=== PATIENT | male | born 1990 | race Caucasian/White ===

== ENCOUNTER 2020-01-19 07:33 | Day surgery (SDC) | payer OTHER ==
[2020-01-19 08:11] VITALS: TEMP 98.5
[2020-01-19 08:27] VITALS: BMI 19.6
[2020-01-19] MEDS ORDERED: SUCCINYLCHOLINE CHLORIDE 200 MG/10 ML SYRINGE ONE (09:09)
[2020-01-19] MEDS ORDERED: KETAMINE HCL 500 MG/10 ML VIAL ONE ×2 (09:09→09:37)
--- NOTE | 2020-01-19 09:13 | HP ---
CHIEF COMPLAINT: MDD, Bipolar disorder PCP: [facility] in [place], [place] [phone] Primary Psychiatrist: Dr. Teague [phone] HCP: Parents (Beto Sagastume [phone], Grace Sagastume [phone]) HISTORY OF PRESENT ILLNESS: 29 year old M with bipolar depression since 2013 initially treated with zyprexa and depakote with minimal effect, therefore he was transitioned to ECT therapy with good results after 12 treatments. In September 2018, pt had a breakthrough episode and was started on Zyprexa, lithium and depakote which was not effective and once again he was treated with ECT x 7 sessions (W/ Dr Lucius Dupont [phone]). Recent Events: In December 2019, pt had a manic episode which was managed with resperidol, now switched to Mayflower, klonopin and Zyprexa. His symptoms persist, therefore, pt opts to undergo ECT. COVID IgG positive 12/27/19 (never had acute infection) PAST MEDICAL HISTORY: Bipolar depression PAST SURGICAL HISTORY: none Social History: with 4 children Currently lives with parents unemployed Exercise: minimal Smoking:denies Alcohol:denies Drugs: denies FMHX Mother alive (66) pre-DM FAther alive (68) pre-DM, h/o lymphoma 5 brother alive and well 2 sisters alive and well Allergies: No Known Drug Allergies Allergy (Verified 01/19/20 07:43) HOME MEDICATIONS: Home Medications Medication Instructions Recorded Clonazepam [Klonopin] 1 mg PO ASDIR PRN 01/18/20 Mayflower Carbonate [Eskalith -] 900 mg PO DAILY 01/18/20 Mayflower Carbonate [Lithobid] 300 mg PO HS 01/18/20 Olanzapine [Zyprexa] 20 mg PO DAILY 01/18/20 Olanzapine [Zyprexa] 40 mg PO HS 01/18/20 Diagnostics: EKG 01/17/2020 (my read) ST 101bpm RAEANN 124ms, QRS 72ms, QT/QTc 320/414ms, ?LAE, LVH LABS: 01/17/2020 WBC 12.6 (H) H/H 14.0/41.8 MCV 89 Labs from psychiatrist on 12/27/19 Glucose 151 (H) WBC 11.8 (H) neutrophils 82.0 D-dimer 1.64 LDH 360 (H) TSH 0.69 T4 toal 8.17 T3 total 95.7 Mayflower level 1.5 (H) REVIEW OF SYSTEMS CONSTITUTIONAL: Absent: fever, chills, diaphoresis, generalized weakness, malaise, loss of appetite, weight change HEENT: Absent: rhinorrhea, nasal congestion, throat pain, throat swelling, difficulty swallowing, mouth swelling, ear pain, eye pain, visual changes CARDIOVASCULAR: Absent: chest pain, syncope, palpitations, irregular heart rate, lightheadedness, peripheral edema RESPIRATORY: Absent: cough, shortness of breath, dyspnea with exertion, orthopnea, wheezing, stridor, hemoptysis GASTROINTESTINAL: Absent: abdominal pain, abdominal distension, nausea, vomiting, diarrhea, constipation, melena, hematochezia GENITOURINARY: Absent: dysuria, frequency, urgency, hesitancy, hematuria, flank pain, genital pain MUSCULOSKELETAL: Absent: myalgia, arthralgia, joint swelling, back pain, neck pain SKIN: Absent: rash, itching, pallor HEMATOLOGIC/IMMUNOLOGIC: Absent: easy bleeding, easy bruising, lymphadenopathy, frequent infections ENDOCRINE: Absent: unexplained weight gain, unexplained weight loss, heat intolerance, cold intolerance NEUROLOGIC: Absent: headache, focal weakness or paresthesias, dizziness, unsteady gait, seizure, mental status changes, bladder or bowel incontinence PHYSICAL EXAMINATION Vital Signs - 24 hr 01/19/20 08:04 Temperature 98.5 F Pulse Rate 100 H Respiratory 18 Rate Blood Pressure 130/79 O2 Sat by Pulse 96 Oximetry (%) GENERAL: Awake, alert, and fully oriented, in no acute distress. HEAD: Normal with no signs of trauma. EYES: Pupils equal, round and reactive to light, sclera anicteric, conjunctiva clear. LUNGS: Breath sounds equal, clear to auscultation bilaterally. No wheezes, and no crackles. No accessory muscle use. HEART: Rapid rate and rhythm, normal S1 and S2 ABDOMEN: Soft, nontender, not distended SKIN:hyperpigmentation to mid/upper back, no wounds/lacerations, dry MUSCULOSKELETAL: Normal range of motion at all joints. No bony deformities or tenderness. No CVA tenderness. UPPER EXTREMITIES: 2+ pulses, warm, well-perfused. No cyanosis. No clubbing. No peripheral edema. LOWER EXTREMITIES: 2+ pulses, warm, well-perfused. No calf tenderness. No peripheral edema. NEUROLOGICAL: normal gait, slow pressured speech. ASSESSMENT/PLAN: 29 year old M with bipolar depression since 2013 minimally responsive to oral meds, with prior ECT success now presents for reinitiation of ECT after exacerbation of bipolar disorder in Dec 2019. Cardiac --no cardiac history --baseline HR elevated and EKG with possible LAE,LVH would recommend a routine Echocardiogram prior to next session --Revised Cardiac Risk Index for Pre-Operative Risk: 0 points, 0.4% risk of major cardiac event Pulmonary --no pulmonary history Neurological --no neurological or neurosurgical history; no history of trauma Anesthesia --no reported problems with anesthesia ECT is a low risk procedure. The relative benefits of the planned procedure outweigh the relative risks for this patient at this time. Plan of care reviewed with mother and father (Grace and Beto Sagastume). Problem List - Problem (1) Bipolar disorder with depression Code(s): F31.9 - BIPOLAR DISORDER, UNSPECIFIED Visit type - Emergency Visit Emergency Visit: No - New Patient This patient is new to me today: Yes Date on this admission: 01/19/20 - Critical Care Critical Care patient: No
[2020-01-19] MEDS ORDERED: METOPROLOL TARTRATE 5 MG/5 ML VIAL ONE (09:20)
[2020-01-19] MEDS ORDERED: MIDAZOLAM HCL 2 MG/2 ML SINGLE DOSE VIAL ONE (09:28)
[2020-01-19] MEDS ORDERED: ONDANSETRON 4 MG/2 ML VIAL ONE (09:38)
[2020-01-19] MEDS ORDERED: PROPOFOL 20 ML ONE ×2 (09:38→09:39)
[2020-01-19] MEDS ORDERED: KETOROLAC TROMETHAMINE 30 MG/1 ML VIAL ONE (09:38)
[2020-01-19 10:35] VITALS: BP 121/71; PULSE 100
== END 2020-01-19 10:40 | disposition home or self-care (01) ==
LOC: FECT 07:33
PROVIDERS: ATTEND Psychiatry & Neurology Psychiatry
PROC: GZB4ZZZ Other Electroconvulsive Therapy (ICD-10-PCS; principal; 2020-01-19 10:30)
DX: F31.9 Bipolar disorder, unspecified (principal)
CPT/HCPCS: 90870; 94760

== ENCOUNTER 2020-01-22 07:05 | Day surgery (SDC) | payer OTHER ==
[2020-01-19 13:40] VITALS: BMI 19.6
[2020-01-22] MEDS ORDERED: KETAMINE HCL 500 MG/10 ML VIAL ONE (07:55)
[2020-01-22] MEDS ORDERED: MIDAZOLAM HCL 2 MG/2 ML SINGLE DOSE VIAL ONE (07:55)
[2020-01-22 09:30] VITALS: BP 121/86; PULSE 92; TEMP 98.4
== END 2020-01-22 09:20 | disposition home or self-care (01) ==
LOC: FECT 07:05
PROVIDERS: ATTEND Psychiatry & Neurology Psychiatry
PROC: GZB4ZZZ Other Electroconvulsive Therapy (ICD-10-PCS; principal; 2020-01-22 11:00)
DX: F31.60 Bipolar disorder, current episode mixed, unspecified (principal)
CPT/HCPCS: 90870; 94760; U0003

== ENCOUNTER 2020-01-25 08:14 | Day surgery (SDC) | payer OTHER ==
[2020-01-19 17:46] VITALS: BMI 19.6
[2020-01-25] MEDS ORDERED: KETAMINE HCL 500 MG/10 ML VIAL ONE (09:37)
[2020-01-25] MEDS ORDERED: MIDAZOLAM HCL 2 MG/2 ML SINGLE DOSE VIAL ONE (09:46)
[2020-01-25] MEDS ORDERED: PROPOFOL 20 ML ONE (09:46)
[2020-01-25 11:47] VITALS: BP 126/74; PULSE 84; TEMP 98
== END 2020-01-25 11:15 | disposition home or self-care (01) ==
LOC: FECT 08:14
PROVIDERS: ATTEND Psychiatry & Neurology Psychiatry
PROC: GZB4ZZZ Other Electroconvulsive Therapy (ICD-10-PCS; principal; 2020-01-25 10:00)
DX: F32.9 Major depressive disorder, single episode, unspecified (principal)
CPT/HCPCS: 90870; 94760

== ENCOUNTER 2020-01-26 06:16 | Day surgery (SDC) | payer OTHER ==
[2020-01-23 07:39] VITALS: BMI 19.6
--- OUTSIDE RECORDS SUMMARY | 2020-01-26 06:19 | XMS ---
:1990 Author Organization [facility] Support Name Relationship Address Phone UE Unavailable Unavailable Unavailable ROBBIE PALACIOS MOTHER [address] [facility] [place] [address] YULISA [place] [address] Re-disclosure Warning The records that you are [...] is protected by Article 27-F of the [facility] Public Health law. If you continue you may haveaccess to information: Regarding HIV / AIDS; Provided by facilities licensed or operated by the [facility] Office of Mental Health; or Provided by the [facility] Office for People With Developmental Disabilities. If such information is present, then the following [facility] mandated warning applies: This information has been [...] law may result in a fine or residential sentence or both. A general authorization for the release of medical or other information is NOT sufficient authorization for further disclosure. Insurance Providers Payer name Policy type Policy ID Covered Covered libertarian's Policy P albert / Coverage libertarian ID relationship to [employer] Inf ormation type alford HEALTH [id number] SP [id number] FIRST Results ID Date Data Source [id number] 01/22/2020 09:08:00 AM EDT [facility] Name Value Range Interpretation Description Data Sup porting Code Source(s) Document(s ) SARS [facility] coronavirus 2 RNA This lab was ordered by DESIREE MADRIGAL and reported by [facility]. ID Date Data Source [id number] 01/17/2020 02:30:00 PM EDT [facility] Name Value Range Interpretation Description Data Sup porting Code Source(s) Document(s ) SARS [facility] coronavirus 2 RNA This lab was ordered by DESIREE MADRIGAL and reported by [facility]. Procedure
[2020-01-26] MEDS ORDERED: KETAMINE HCL 500 MG/10 ML VIAL ONE (07:39)
[2020-01-26] MEDS ORDERED: LACTATED RINGERS SOLUTION 1,000 ML IV SCH (08:00)
[2020-01-26 08:57] VITALS: TEMP 98
[2020-01-26 08:58] VITALS: BP 122/76; PULSE 81
== END 2020-01-26 09:00 | disposition home or self-care (01) ==
LOC: FECT 06:16
PROVIDERS: ATTEND Psychiatry & Neurology Psychiatry
PROC: GZB4ZZZ Other Electroconvulsive Therapy (ICD-10-PCS; principal; 2020-01-26 07:00)
DX: F31.62 Bipolar disorder, current episode mixed, moderate (principal)
CPT/HCPCS: 90870; 94760; U0003

== ENCOUNTER 2020-02-01 07:29 | Day surgery (SDC) | payer OTHER ==
[2020-01-30 08:22] VITALS: BMI 26.6
--- OUTSIDE RECORDS SUMMARY | 2020-02-01 07:33 | XMS ---
:1990 Author Organization [facility] Support Name Relationship Address Phone UE, UNEMPLOYED Unavailable Unavailable Unavailable UE Unavailable Unavailable Unavailable ROBBIE PALACIOS MOTHER [address] [place] [address] [place] [address] Re-disclosure Warning The records that you are [...] is protected by Article 27-F of the [facility] Public Health law. If you continue you may haveaccess to information: Regarding HIV / AIDS; Provided by facilities licensed or operated by the [facility] Office of Mental Health; or Provided by the [facility] Office for People With Developmental Disabilities. If such information is present, then the following [facility] mandated warning applies: This information has [...] law may result in a fine or [facility] sentence or both. A general authorization for the release of medical or other information is NOT sufficient authorization for further disclosure. Insurance Providers Payer name Policy type Policy ID Covered Covered green party's Policy P albert / Coverage green party ID relationship to [employer] ormation type [employer] HEALTH [id number] SP [id number] FIRST Results ID Date Data Source [id number] 01/26/2020 07:42:00 AM EDT [facility] Name Value Range Interpretation Description Data Sup porting Code Source(s) Document(s ) SARS [facility] coronavirus 2 RNA This lab was ordered by [facility] and reported by [facility]. ID Date Data Source [id number] 01/22/2020 09:08:00 AM EDT [facility] Name Value Range Interpretation Description Data Sup porting Code Source(s) Document(s ) SARS [facility] coronavirus 2 RNA This lab was ordered by DESIREE MADRIGAL and reported by [facility]. ID Date Data Source [id number] 01/17/2020 02:30:00 PM EDT [facility] Name Value Range Interpretation Description Data Sup porting Code Source(s) Document(s ) SARS [facility] coronavirus 2 RNA This lab was ordered by DESIREE MADRIGAL and reported by [facility]. Procedure
[2020-02-01] MEDS ORDERED: PROPOFOL 20 ML ONE (08:57)
[2020-02-01] MEDS ORDERED: SUCCINYLCHOLINE CHLORIDE 200 MG/10 ML SYRINGE ONE (08:58)
[2020-02-01] MEDS ORDERED: KETAMINE HCL 500 MG/10 ML VIAL ONE (08:58)
[2020-02-01 10:05] VITALS: TEMP 97.7
[2020-02-01 10:26] VITALS: BP 108/62; PULSE 72
== END 2020-02-01 10:28 | disposition home or self-care (01) ==
LOC: FECT 07:29
PROVIDERS: ATTEND Psychiatry & Neurology Psychiatry
PROC: GZB4ZZZ Other Electroconvulsive Therapy (ICD-10-PCS; principal; 2020-02-01 09:30)
DX: F32.9 Major depressive disorder, single episode, unspecified (principal)
CPT/HCPCS: 90870; 94760

== ENCOUNTER 2020-02-02 06:33 | Day surgery (SDC) | payer OTHER ==
[2020-01-30 08:25] VITALS: BMI 26.6
--- OUTSIDE RECORDS SUMMARY | 2020-02-02 06:37 | XMS ---
:1990 Author Organization [facility] Support Name Relationship Address Phone UE, UNEMPLOYED Unavailable Unavailable Unavailable UE Unavailable Unavailable Unavailable ROBBIE PALACIOS MOTHER [address] [facility] [phone] [place] [phone] [place] [address] Re-disclosure Warning The records that you are [...] is protected by Article 27-F of the [facility] Public Health law. If you continue you may haveaccess to information: Regarding HIV / AIDS; Provided by facilities licensed or operated by the [facility] Office of Mental Health; or Provided by the [facility] Office for People With Developmental Disabilities. If such information is present, then the following [facility] mandated warning applies: This information has [...] law may result in a fine or half-way sentence or both. A general authorization for the release of medical or other information is NOT sufficient authorization for further disclosure. Insurance Providers Payer name Policy type Policy ID Covered Covered green party's Policy P albert / Coverage green party ID relationship to [employer] Inf ormation type al[employer] HEALTH [id number] SP [id number] FIRST Results ID Date Data Source [id number] 01/29/2020 10:30:00 AM EDT [facility] Name Value Range Interpretation Description Data Sup porting Code Source(s) Document(s ) SARS [facility] coronavirus 2 RNA This lab was ordered by DESIREE avila [facility] and reported by [facility]. ID Date Data Source [id number] 01/26/2020 07:42:00 AM EDT [facility] Name Value Range Interpretation Description Data Sup porting Code Source(s) Document(s ) SARS [facility] coronavirus 2 RNA This lab was ordered by [facility] and reported by [facility]. ID Date Data Source [id number] 01/22/2020 09:08:00 AM EDT [facility] Name Value Range Interpretation Description Data Sup porting Code Source(s) Document(s ) SARS [facility] coronavirus 2 RNA This lab was ordered by DESIREE avila [facility] and reported by [facility]. ID Date Data Source [id number] 01/17/2020 02:30:00 PM EDT [facility] Name Value Range Interpretation Description Data Sup porting Code Source(s) Document(s ) SARS [facility] coronavirus 2 RNA This lab was ordered by DESIREE avila [facility] and reported by [facility]. Procedure
[2020-02-02] MEDS ORDERED: PROMETHAZINE HCL 25 MG/1 ML VIAL IVPUSH PRN (06:53)
[2020-02-02] MEDS ORDERED: ACETAMINOPHEN 325 MG TABLET (FP) PO PRN (06:53)
[2020-02-02] MEDS ORDERED: LACTATED RINGERS SOLUTION 1,000 ML IV SCH (07:00)
[2020-02-02] MEDS ORDERED: KETAMINE HCL 500 MG/10 ML VIAL ONE (08:31)
[2020-02-02] MEDS ORDERED: PROPOFOL 20 ML ONE (08:38)
[2020-02-02] MEDS ORDERED: SUCCINYLCHOLINE CHLORIDE 200 MG/10 ML SYRINGE ONE (08:38)
[2020-02-02] MEDS ORDERED: ONDANSETRON 4 MG/2 ML VIAL ONE (08:39)
[2020-02-02] MEDS ORDERED: KETOROLAC TROMETHAMINE 30 MG/1 ML VIAL ONE (08:39)
[2020-02-02] MEDS ORDERED: DEXAMETHASONE SOD PHOSPHATE 4 MG/1 ML VIAL ONE (08:39)
[2020-02-02 09:32] VITALS: TEMP 98
[2020-02-02 09:53] VITALS: BP 138/71; PULSE 74
== END 2020-02-02 09:54 | disposition home or self-care (01) ==
LOC: FECT 06:33
PROVIDERS: ATTEND Psychiatry & Neurology Psychiatry
PROC: GZB4ZZZ Other Electroconvulsive Therapy (ICD-10-PCS; principal; 2020-02-02 07:00)
DX: F32.9 Major depressive disorder, single episode, unspecified (principal)
CPT/HCPCS: 90870; 94760

== ENCOUNTER 2020-02-08 10:01 | Day surgery (SDC) | payer OTHER ==
[~2020-02-08 10:01] MED LIST: LACTATED RINGERS SOLUTION 1,000 ML IV SCH; ONDANSETRON 4 MG/2 ML VIAL IVPUSH PRN
[2020-02-08 10:19] VITALS: BMI 26.6
[2020-02-08] MEDS ORDERED: KETAMINE HCL 500 MG/10 ML VIAL ONE (11:27)
[2020-02-08] MEDS ORDERED: KETOROLAC TROMETHAMINE 30 MG/1 ML VIAL ONE (11:30)
[2020-02-08] MEDS ORDERED: DEXAMETHASONE SOD PHOSPHATE 4 MG/1 ML VIAL ONE (11:30)
[2020-02-08] MEDS ORDERED: ONDANSETRON 4 MG/2 ML VIAL ONE (11:30)
[2020-02-08 13:03] VITALS: TEMP 98.6
[2020-02-08 13:06] VITALS: BP 121/71; PULSE 86
== END 2020-02-08 12:55 | disposition home or self-care (01) ==
LOC: FECT 10:01
PROVIDERS: ATTEND Psychiatry & Neurology Psychiatry
PROC: GZB4ZZZ Other Electroconvulsive Therapy (ICD-10-PCS; principal; 2020-02-08 10:00)
DX: F32.9 Major depressive disorder, single episode, unspecified (principal)
CPT/HCPCS: 90870; 94760

== ENCOUNTER 2020-02-09 08:07 | Day surgery (SDC) | payer OTHER ==
[2020-02-05 07:38] VITALS: BMI 26.6
--- OUTSIDE RECORDS SUMMARY | 2020-02-09 08:10 | XMS ---
:1990 Author [facility] Support Name Relationship Address Phone UE, UNEMPLOYED Unavailable Unavailable Unavailable UE Unavailable Unavailable Unavailable ROBBIE PALACIOS MOTHER [address] [facility] [phone] [place] [id number] YULISA PALACIOS FATHER [address] [facility] [place] [phone] Re-disclosure Warning The records that you are [...] is protected by Article 27-F of the [facility] Public Health law. If you continue you may haveaccess to information: Regarding HIV / AIDS; Provided by facilities licensed or operated by the [facility] Office of Mental Health; or Provided by the [facility] Office for People With Developmental Disabilities. If such information is present, then the following [facility] mandated warning applies: This information [...] law may result in a fine or detention sentence or both. A general authorization for the release of medical or other information is NOT sufficient authorization for further disclosure. Insurance Providers Payer name Policy type Policy ID Covered Covered green party's Policy P albert / Coverage green party ID relationship to [employer] Inf ormation type alford HEALTH [id number] SP [id number] FIRST Results ID Date Data Source [id number] 02/04/2020 12:01:00 AM EDT [facility] Name Value Range Interpretation Description Data Sup porting Code Source(s) Document(s ) SARS[facility]CoV-2 [facility] (COVID-19) RNA [Presence] in Respiratory specimen by VINEET with probe detection This lab was ordered by [facility] and reported by [employer]. ID Date Data Source [id number] 01/29/2020 10:30:00 AM EDT [facility] Name Value Range Interpretation Description Data Sup porting Code Source(s) Document(s ) SARS [facility] coronavirus 2 RNA This lab was ordered by DESIREE avila [facility] and reported by [facility]. ID Date Data Source [id number] 01/26/2020 07:42:00 AM EDT [facility] Name Value Range Interpretation Description Data Sup porting Code Source(s) Document(s ) SARS [facility] coronavirus 2 RNA This lab was ordered by [facility] and reported by [facility]. ID Date Data Source [id number] 01/22/2020 09:08:00 AM EDT [facility] Name Value Range Interpretation Description Data Sup porting Code Source(s) Document(s ) SARS [facility] coronavirus 2 RNA This lab was ordered by DESIREE avila [facility] and reported by [facility]. ID Date Data Source [id number] 01/17/2020 02:30:00 PM EDT [facility] Name Value Range Interpretation Description Data Sup porting Code Source(s) Document(s ) SARS [facility] coronavirus 2 RNA This lab was ordered by DESIREEHANG avila [facility] and reported by [facility]. Procedure
[2020-02-09] MEDS ORDERED: KETAMINE HCL 500 MG/10 ML VIAL ONE (10:23)
[2020-02-09] MEDS ORDERED: ONDANSETRON 4 MG/2 ML VIAL ONE (10:25)
[2020-02-09] MEDS ORDERED: DEXAMETHASONE SOD PHOSPHATE 4 MG/1 ML VIAL ONE (10:25)
[2020-02-09] MEDS ORDERED: PROPOFOL 20 ML ONE (10:25)
[2020-02-09] MEDS ORDERED: KETOROLAC TROMETHAMINE 30 MG/1 ML VIAL ONE (10:25)
[2020-02-09 11:32] VITALS: TEMP 98.4
[2020-02-09 11:40] VITALS: BP 124/77; PULSE 62
== END 2020-02-09 11:40 | disposition home or self-care (01) ==
LOC: FECT 08:07
PROVIDERS: ATTEND Psychiatry & Neurology Psychiatry
PROC: GZB4ZZZ Other Electroconvulsive Therapy (ICD-10-PCS; principal; 2020-02-09 07:00)
DX: F32.9 Major depressive disorder, single episode, unspecified (principal)
CPT/HCPCS: 90870; 94760; U0003

== ENCOUNTER 2020-02-12 07:55 | Day surgery (SDC) | payer OTHER ==
[2020-02-05 07:41] VITALS: BMI 26.6
--- OUTSIDE RECORDS SUMMARY | 2020-02-12 07:59 | XMS ---
:1990 Author [facility] Support Name Relationship Address Phone UE, UNEMPLOYED Unavailable Unavailable Unavailable UE Unavailable Unavailable Unavailable ROBBIE PALACIOS MOTHER [address] [facility] [place] [phone] YULISA PALACIOS FATHER [address] [facility] [phone] [place] [phone] Re-disclosure Warning The records that you are [...] is protected by Article 27-F of the [facility] Public Health law. If you continue you may haveaccess to information: Regarding HIV / AIDS; Provided by facilities licensed or operated by the [facility] Office of Mental Health; or Provided by the [facility] Office for People With Developmental Disabilities. If such information is present, then the following [facility] mandated warning applies: This information has [...] law may result in a fine or [place] [facility] sentence or both. A general authorization for the release of medical or other information is NOT sufficient authorization for further disclosure. Insurance Providers Payer name Policy type Policy ID Covered Covered green party's Policy P albert / Coverage green party ID relationship to [employer] Inf ormation type alford HEALTH [id number] SP [id number] FIRST Results ID Date Data Source [id number] 02/04/2020 12:01:00 AM EDT [facility] Name Value Range Interpretation Description Data Sup porting Code Source(s) Document(s ) SARS-CoV-2 [facility] (COVID-[facility]) RNA [Presence] in Respiratory specimen by VINEET with probe detection This lab was ordered by [facility] and reported by [employer]. ID Date Data Source [id number] 01/29/2020 10:30:00 AM EDT [facility] Name Value Range Interpretation Description Data Sup porting Code Source(s) Document(s ) SARS [facility] coronavirus 2 RNA This lab was ordered by DESIREE avila [facility] and reported by [facility]. ID Date Data Source [id number] 01/26/2020 07:42:00 AM EDT [facility] Name Value Range Interpretation Description Data Sup porting Code Source(s) Document(s ) SARS [facility] coronavirus 2 RNA This lab was ordered by [facility] and reported by [facility]. ID Date Data Source [id number] 01/22/2020 09:08:00 AM EDT [facility] Name Value Range Interpretation Description Data Sup porting Code Source(s) Document(s ) SARS [facility] coronavirus 2 RNA This lab was ordered by DESIREE avila [facility] and reported by [facility]. ID Date Data Source [id number] 01/17/2020 02:30:00 PM EDT [facility] Name Value Range Interpretation Description Data Sup porting Code Source(s) Document(s ) SARS [facility] coronavirus 2 RNA This lab was ordered by DESIREEHANG avila [facility] and reported by [facility]. Procedure
[2020-02-12] MEDS ORDERED: KETAMINE HCL 500 MG/10 ML VIAL ONE (08:43)
[2020-02-12 09:59] VITALS: TEMP 98.2
[2020-02-12 10:17] VITALS: BP 125/75; PULSE 74
== END 2020-02-12 10:20 | disposition home or self-care (01) ==
LOC: FECT 07:55
PROVIDERS: ATTEND Psychiatry & Neurology Psychiatry
PROC: GZB4ZZZ Other Electroconvulsive Therapy (ICD-10-PCS; principal; 2020-02-12 07:00)
DX: F32.9 Major depressive disorder, single episode, unspecified (principal)
CPT/HCPCS: 90870; 94760; U0003

== ENCOUNTER 2020-02-15 07:33 | Day surgery (SDC) | payer OTHER ==
--- OUTSIDE RECORDS SUMMARY | 2020-01-22 11:44 | XMS ---
:1990 Author Organization [facility] Support Name Relationship Address Phone UE Unavailable Unavailable Unavailable ROBBIE PALACIOS MOTHER [address] [place] [address] [place] [address] Re-disclosure Warning The records that you are about to access may contain information from federally- assisted alcohol or drug abuse programs. If such information is present, then the following federally mandated warning applies: This information has been disclosed to you from records protected by federal confidentiality rules (42 CFR part 2). The federal rules prohibit you from making any further disclosure of this information unless further disclosure is expressly permitted by the written consent of the person to whom it pertains or as otherwise permitted by 42 CFR part 2. A general authorization for the release of medical or other information is NOT sufficient for this purpose. The Federal rules restrict any use of the information to criminally investigate or prosecute any alcohol or drug abuse patient.The records that you are about to access may contain highly sensitive health information, the redisclosure of which is protected by Article 27-F of the [facility] Public Health law. If you continue you may haveaccess to information: Regarding HIV / AIDS; Provided by facilities licensed or operated by the [facility] Office of Mental Health; or Provided by the [facility] Office for People With Developmental Disabilities. If such information is present, then the following [facility] mandated warning applies: This information has been disclosed to you from confidential records which are protected by state law. State law prohibits you from making any further disclosure of this information without the specific written consent of the person to whom it pertains, or as otherwise permitted by law. Any unauthorized further disclosure in violation of state law may result in a fine or nursing home sentence or both. A general authorization for the release of medical or other information is NOT sufficient authorization for further disclosure. Insurance Providers Payer name Policy type Policy ID Covered Covered republican's Policy P albert / Coverage republican ID relationship to [employer] Inf ormation type alford HEALTH [id number] SP [id number] FIRST Results ID Date Data Source [id number] 01/17/2020 02:30:00 PM EDT [facility] Name Value Range Interpretation Description Data Sup porting Code Source(s) Document(s ) SARS [facility] coronavirus 2 RNA This lab was ordered by DESIREE avila [facility] and reported by [facility]. Procedure
[2020-02-05 14:57] VITALS: BMI 26.6
--- OUTSIDE RECORDS SUMMARY | 2020-02-15 07:35 | XMS ---
:1990 Author Organization [facility] Support Name Relationship Address Phone UE, UNEMPLOYED Unavailable Unavailable Unavailable UE Unavailable Unavailable Unavailable ROBBIE PALACIOS MOTHER [address] [facility] [place] [phone] YULISA PALACIOS FATHER [address] [facility] [place] [phone] Re-disclosure Warning The records that you are [...] protected by Article 27-F of the [facility] Public Health law. If you continue you may haveaccess to information: Regarding HIV / AIDS; Provided by facilities licensed or operated by the [facility] Office of Mental Health; or Provided by the [facility] Office for People With Developmental Disabilities. If such information is present, then the following [facility] mandated warning applies: This information has [...] law may result in a fine or chcf sentence or both. A general authorization for the release of medical or other information is NOT sufficient authorization for further disclosure. Insurance Providers Payer name Policy type Policy ID Covered Covered libertarian's Policy P albert / Coverage libertarian ID relationship to [facility] ormation type [facility] HEALTH [id number] SP [id number] FIRST Results ID Date Data Source [id number] 02/09/2020 11:59:00 AM EDT [facility] Name Value Range Interpretation Description Data Sup porting Code Source(s) Document(s ) SARS [facility] coronavirus 2 RNA This lab was ordered by DESIREEErasmo avila [facility] and reported by [facility]. ID Date Data Source [id number] 02/04/2020 12:01:00 AM EDT [facility] Name Value Range Interpretation Description Data Sup porting Code Source(s) Document(s ) SARS-CoV-2 [facility] (COVID-19) RNA [Presence] in Respiratory specimen by VINEET with probe detection This lab was ordered by [facility] and reported by [employer]. ID Date Data Source [id number] 01/29/2020 10:30:00 AM EDT [facility] Name Value Range Interpretation Description Data Sup porting Code Source(s) Document(s ) SARS [facility] coronavirus 2 RNA This lab was ordered by DESIREE JAKE avila [facility] and reported by [facility]. ID Date Data Source [id number] 01/26/2020 07:42:00 AM EDT [facility] Name Value Range Interpretation Description Data Sup porting Code Source(s) Document(s ) SARS [facility] coronavirus 2 RNA This lab was ordered by [facility] and reported by [facility]. ID Date Data Source [id number] 01/22/2020 09:08:00 AM EDT [facility] Name Value Range Interpretation Description Data Sup porting Code Source(s) Document(s ) SARS [facility] coronavirus 2 RNA This lab was ordered by [employer] avila [facility] and reported by [facility]. ID Date Data Source [id number] 01/17/2020 02:30:00 PM EDT [facility] Name Value Range Interpretation Description Data Sup porting Code Source(s) Document(s ) SARS [facility] coronavirus 2 RNA This lab was ordered by DESIREE JAKE avila [facility] and reported by [facility]. Procedure
[2020-02-15 08:19] VITALS: TEMP 98.4
[2020-02-15] MEDS ORDERED: PROPOFOL 20 ML ONE (09:54)
[2020-02-15] MEDS ORDERED: KETAMINE HCL 500 MG/10 ML VIAL ONE (09:54)
--- NOTE | 2020-02-15 11:26 | HP ---
CHIEF COMPLAINT: Major depressive disorder, Bipolar disorder PCP: [facility] in [place], [place] [phone] Primary Psychiatrist: Dr. Teague [phone] HCP: Parents (Beto Sagastume [phone], Grace Sagastume [phone]) HISTORY OF PRESENT ILLNESS: 29 year-old male with a PMH significant for major depressive disorder and bipolar disorder. First underwent ECT in 2013, then again in 2019. He appears today for ECT. Recent Events: * None reported COVID IgG positive 12/27/19 (never had acute infection) PAST MEDICAL HISTORY: Major depressive disorder Bipolar disorder PAST SURGICAL HISTORY: None reported Social History: with 4 children Currently lives with parents unemployed Smoking:denies Alcohol:denies Drugs: denies FMHX Mother alive (66) pre-DM FAther alive (68) pre-DM, h/o lymphoma 5 brother alive and well 2 sisters alive and well Allergies No Known Drug Allergies Allergy (Verified 02/09/20 08:30) HOME MEDICATIONS: Home Medications Medication Instructions Recorded Clonazepam [Klonopin] 1 mg PO ASDIR PRN 01/18/20 [place] Carbonate [Lithobid] 1,200 mg PO HS 01/18/20 Aripiprazole 2.5 mg PO DAILY 02/02/20 Olanzapine [Zyprexa] 10 mg PO HS 02/09/20 REVIEW OF SYSTEMS CONSTITUTIONAL: Absent: fever, chills, diaphoresis, generalized weakness, malaise, loss of appetite, weight change HEENT: Absent: rhinorrhea, nasal congestion, throat pain, throat swelling, difficulty swallowing, mouth swelling, ear pain, eye pain, visual changes CARDIOVASCULAR: Absent: chest pain, syncope, palpitations, irregular heart rate, lightheadedness, peripheral edema RESPIRATORY: Absent: cough, shortness of breath, dyspnea with exertion, orthopnea, wheezing, stridor, hemoptysis GASTROINTESTINAL: Absent: abdominal pain, abdominal distension, nausea, vomiting, diarrhea, constipation, melena, hematochezia GENITOURINARY: Absent: dysuria, frequency, urgency, hesitancy, hematuria, flank pain, genital pain MUSCULOSKELETAL: Absent: myalgia, arthralgia, joint swelling, back pain, neck pain SKIN: Absent: rash, itching, pallor HEMATOLOGIC/IMMUNOLOGIC: Absent: easy bleeding, easy bruising, lymphadenopathy, frequent infections ENDOCRINE: Absent: unexplained weight gain, unexplained weight loss, heat intolerance, cold intolerance NEUROLOGIC: Absent: headache, focal weakness or paresthesias, dizziness, unsteady gait, seizure, mental status changes, bladder or bowel incontinence PHYSICAL EXAMINATION Vital Signs - 24 hr 02/15/20 02/15/20 08:13 10:50 Temperature 98.4 F 98.4 F Pulse Rate 86 76 Respiratory 18 18 Rate Blood Pressure 103/69 122/85 O2 Sat by Pulse 99 100 Oximetry (%) GENERAL: Awake, alert, and fully oriented, in no acute distress. HEAD: Normal with no signs of trauma. EYES: Pupils equal, round and reactive to light, sclera anicteric, conjunctiva clear. LUNGS: Breath sounds equal, clear to auscultation bilaterally. No wheezes, and no crackles. No accessory muscle use. HEART: Regular rate and rhythm, normal S1 and S2 ABDOMEN: Soft, nontender, not distended MUSCULOSKELETAL: Normal range of motion at all joints. No bony deformities or tenderness. No CVA tenderness. UPPER EXTREMITIES: 2+ pulses, warm, well-perfused. No cyanosis. No clubbing. No peripheral edema. LOWER EXTREMITIES: 2+ pulses, warm, well-perfused. No calf tenderness. No peripheral edema. NEUROLOGICAL: Cranial nerves II-XII intact. Normal speech. ASSESSMENT/PLAN: 29 year-old male with a PMH significant for major depressive disorder and bipolar disorder. He appears today for ECT. Cardiac --no cardiac history --Revised Cardiac Risk Index for Pre-Operative Risk: 0 points, 0.4% risk of major cardiac event Pulmonary --no pulmonary history Neurological --no neurological or neurosurgical history; no history of trauma Anesthesia --no reported problems with anesthesia ECT is a low risk procedure. The relative benefits of the planned procedure outweigh the relative risks for this patient at this time. Visit type - Emergency Visit Emergency Visit: No - New Patient This patient is new to me today: Yes Date on this admission: 02/15/20 - Critical Care Critical Care patient: No
[2020-02-15 11:54] VITALS: BP 110/79; PULSE 79
== END 2020-02-15 11:25 | disposition home or self-care (01) ==
LOC: FECT 07:33
PROVIDERS: ATTEND Psychiatry & Neurology Psychiatry
PROC: GZB4ZZZ Other Electroconvulsive Therapy (ICD-10-PCS; principal; 2020-02-15 07:30)
DX: F32.9 Major depressive disorder, single episode, unspecified (principal)
CPT/HCPCS: 90870; 94760; C9803; U0003

== ENCOUNTER 2020-02-19 07:40 | Day surgery (SDC) | payer OTHER ==
--- OUTSIDE RECORDS SUMMARY | 2020-01-22 11:45 | XMS ---
:1990 Author Organization [facility] Support Name Relationship Address Phone UE Unavailable Unavailable Unavailable ROBBIE PALACIOS MOTHER [address] [place] [address] [place] [address] Re-disclosure Warning The records that you are [...] is protected by Article 27-F of the [facility] Public Health law. If you continue you may haveaccess to information: Regarding HIV / AIDS; Provided by facilities licensed or operated by the [facility] Office of Mental Health; or Provided by the [facility] Office for People With Developmental Disabilities. If such information is present, then the following [facility] mandated warning applies: This information has been [...] law may result in a fine or correction sentence or both. A general authorization for the release of medical or other information is NOT sufficient authorization for further disclosure. Insurance Providers Payer name Policy type Policy ID Covered Covered democrat's Policy P albert / Coverage democrat ID relationship to [employer] Inf ormation type alford HEALTH [id number] SP [id number] FIRST Results ID Date Data Source [id number] 01/17/2020 02:30:00 PM EDT [facility] Name Value Range Interpretation Description Data Sup porting Code Source(s) Document(s ) SARS [facility] coronavirus 2 RNA This lab was ordered by DESIREE avila [facility] and reported by [facility]. Procedure
[2020-02-05 17:09] VITALS: BMI 26.6
--- OUTSIDE RECORDS SUMMARY | 2020-02-19 07:43 | XMS ---
:1990 Author Organization [facility] Support Name Relationship Address Phone UE, UNEMPLOYED Unavailable Unavailable Unavailable UE Unavailable Unavailable Unavailable ROBBIE PALACIOS MOTHER [address] [facility] [place] [id number] YULISA PALACIOS FATHER [address] [facility] [phone] [place] [phone] Re-disclosure Warning The records that you are [...] is protected by Article 27-F of the [facility] Public Health law. If you continue you may haveaccess to information: Regarding HIV / AIDS; Provided by facilities licensed or operated by the [facility] Office of Mental Health; or Provided by the [facility] Office for People With Developmental Disabilities. If such information is present, then the following [facility] mandated warning applies: This information has [...] law may result in a fine or retirement sentence or both. A general authorization for the release of medical or other information is NOT sufficient authorization for further disclosure. Insurance Providers Payer name Policy type Policy ID Covered Covered green party's Policy P albert / Coverage green party ID relationship to [facility] ormation type [facility] HEALTH [id number] SP [id number] FIRST Results ID Date Data Source [id number] 02/15/2020 11:06:00 AM EDT [facility] Name Value Range Interpretation Description Data Sup porting Code Source(s) Document(s ) SARS [facility] coronavirus 2 RNA This lab was ordered by DESIREE JAKE avila [facility] and reported by [facility]. ID Date Data Source [id number] 02/12/2020 10:16:00 AM EDT [facility] Name Value Range Interpretation Description Data Sup porting Code Source(s) Document(s ) SARS [facility] coronavirus 2 RNA This lab was ordered by DESIREE JAKE avila [facility] and reported by [facility]. ID Date Data Source [id number] 02/09/2020 11:59:00 AM EDT [facility] Name Value Range Interpretation Description Data Sup porting Code Source(s) Document(s ) SARS [facility] coronavirus 2 RNA This lab was ordered by DESIREE JAKE avila [facility] and reported by [facility]. ID Date Data Source [id number] 02/04/2020 12:01:00 AM EDT [facility] Name Value Range Interpretation Description Data Sup porting Code Source(s) Document(s ) [facility] [Presence] in Respiratory specimen by VINEET with probe detection [facility] and reported by [employer] ID Date Data Source [id number] 01/29/2020 10:30:00 AM EDT [facility] Name Value Range Interpretation Description Data Sup porting Code Source(s) Document(s ) SARS [facility] coronavirus 2 RNA This lab was ordered by [facility] JAKE avila [facility] and reported by [facility]. ID Date Data Source [id number] 01/26/2020 07:42:00 AM EDT [facility] Name Value Range Interpretation Description Data Sup porting Code Source(s) Document(s ) SARS [facility] coronavirus 2 RNA This lab was ordered by [facility] and reported by [facility]. ID Date Data Source [id number] 01/22/2020 09:08:00 AM EDT [facility] Name Value Range Interpretation Description Data Sup porting Code Source(s) Document(s ) SARS [facility] coronavirus 2 RNA This lab was ordered by DESIREE MADRIGAL and reported by [facility]. ID Date Data Source [id number] 01/17/2020 02:30:00 PM EDT [facility] Name Value Range Interpretation Description Data Sup porting Code Source(s) Document(s ) SARS [facility] coronavirus 2 RNA This lab was ordered by DEISREE MOORE and reported by [facility]. Procedure
[2020-02-19 08:00] VITALS: TEMP 98.2
[2020-02-19] MEDS ORDERED: KETAMINE HCL 500 MG/10 ML VIAL ONE (08:37)
[2020-02-19] MEDS ORDERED: ONDANSETRON 4 MG/2 ML VIAL IVPUSH PRN (09:14)
[2020-02-19] MEDS ORDERED: oxyCODONE HCL 5 MG TABLET PO PRN (09:14)
[2020-02-19] MEDS ORDERED: LACTATED RINGERS SOLUTION 1,000 ML IV SCH (09:15)
[2020-02-19] MEDS ORDERED: LIDOCAINE HCL/PF 2% SDV 5ML VIAL ONE (09:23)
[2020-02-19] MEDS ORDERED: KETOROLAC TROMETHAMINE 30 MG/1 ML VIAL ONE (09:23)
[2020-02-19] MEDS ORDERED: DEXAMETHASONE SOD PHOSPHATE 4 MG/1 ML VIAL ONE (09:23)
[2020-02-19] MEDS ORDERED: PROPOFOL 20 ML ONE (09:24)
[2020-02-19] MEDS ORDERED: SUCCINYLCHOLINE CHLORIDE 200 MG/10 ML SYRINGE ONE (09:26)
[2020-02-19 10:36] VITALS: BP 124/70; PULSE 71
== END 2020-02-19 10:36 | disposition home or self-care (01) ==
LOC: FECT 07:40
PROVIDERS: ATTEND Psychiatry & Neurology Psychiatry
PROC: GZB4ZZZ Other Electroconvulsive Therapy (ICD-10-PCS; principal; 2020-02-19 07:00)
DX: F32.9 Major depressive disorder, single episode, unspecified (principal)
CPT/HCPCS: 90870; 94760; C9803; U0003

== ENCOUNTER 2020-02-23 06:33 | Day surgery (SDC) | payer OTHER ==
[2020-02-20 07:47] VITALS: BMI 26.6
--- OUTSIDE RECORDS SUMMARY | 2020-02-23 06:36 | XMS ---
:1990 Author [facility] Support Name Relationship Address Phone UE, UNEMPLOYED Unavailable Unavailable Unavailable UE Unavailable Unavailable Unavailable ROBBIE PALACIOS MOTHER [address] [facility] [place] [phone] YULISA PALACIOS FATHER [address] [facility] [place] [phone] Re-disclosure Warning The records that you are [...] is protected by Article 27-F of the [facility] Public Health law. If you continue you may haveaccess to information: Regarding HIV / AIDS; Provided by facilities licensed or operated by the [facility] Office of Mental Health; or Provided by the [facility] Office for People With Developmental Disabilities. If such information is present, then the following [facility] mandated warning applies: This information has [...] law may result in a fine or fpc sentence or both. A general authorization for the release of medical or other information is NOT sufficient authorization for further disclosure. Insurance Providers Payer name Policy type Policy ID Covered Covered democrat's Policy P albert / Coverage democrat ID relationship to [facility] ormation type [facility] HEALTH [id number] SP [id number] FIRST Results ID Date Data Source [id number] 02/19/2020 10:30:00 AM EDT [facility] Name Value Range Interpretation Description Data Sup porting Code Source(s) Document(s ) SARS [facility] coronavirus 2 RNA This lab was ordered by DESIREE JAKE avila [facility] and reported by [facility]. ID Date Data Source [id number] 02/15/2020 11:06:00 AM EDT [facility] Name Value Range Interpretation Description Data Sup porting Code Source(s) Document(s ) SARS [facility] coronavirus 2 RNA This lab was ordered by DESIREE [place] [employer] avila [facility] and reported by [facility]. ID Date Data Source [id number] 02/12/2020 10:16:00 AM EDT [facility] Name Value Range Interpretation Description Data Sup porting Code Source(s) Document(s ) SARS [facility] coronavirus 2 RNA This lab was ordered by DESIREE JAKE avila [facility] and reported by [facility]. ID Date Data Source [id number] 02/09/2020 11:59:00 AM EDT [facility] Name Value Range Interpretation Description Data Sup porting Code Source(s) Document(s ) SARS [facility] coronavirus 2 RNA This lab was ordered by DESIREE JAKE avila [facility] and reported by [facility]. ID Date Data Source [id number] 02/04/2020 12:01:00 AM EDT [facility] Name Value Range Interpretation Description Data Sup porting Code Source(s) Document(s ) SARS-CoV-2 [facility] (COVID-19) RNA [Presence] in Respiratory specimen by VINEET with probe detection This lab was ordered by [facility] and reported by [employer]. ID Date Data Source [id number] 01/29/2020 10:30:00 AM EDT [facility] Name Value Range Interpretation Description Data Sup porting Code Source(s) Document(s ) SARS [facility] coronavirus 2 RNA This lab was ordered by DESIREE [place] [employer] avila [facility] and reported by [facility]. ID Date Data Source [id number] 01/26/2020 07:42:00 AM EDT [facility] Name Value Range Interpretation Description Data Sup porting Code Source(s) Document(s ) SARS [facility] coronavirus 2 RNA This lab was ordered by [facility] and reported by [facility]. ID Date Data Source [id number] 01/22/2020 09:08:00 AM EDT [facility] Name Value Range Interpretation Description Data Sup porting Code Source(s) Document(s ) SARS [facility] coronavirus 2 RNA This lab was ordered by DESIREE avila [facility] and reported by [facility]. ID Date Data Source [id number] 01/17/2020 02:30:00 PM EDT [facility] Name Value Range Interpretation Description Data Sup porting Code Source(s) Document(s ) SARS [facility] coronavirus 2 RNA This lab was ordered by DESIREE MADRIGAL and reported by [facility]. Procedure
[2020-02-23 07:35] VITALS: TEMP 98.2
[2020-02-23] MEDS ORDERED: PROPOFOL 20 ML ONE (08:20)
[2020-02-23] MEDS ORDERED: SUCCINYLCHOLINE CHLORIDE 200 MG/10 ML SYRINGE ONE (08:21)
[2020-02-23] MEDS ORDERED: KETAMINE HCL 500 MG/10 ML VIAL ONE (08:21)
[2020-02-23 10:05] VITALS: BP 112/70; PULSE 69
== END 2020-02-23 09:55 | disposition home or self-care (01) ==
LOC: FECT 06:33
PROVIDERS: ATTEND Psychiatry & Neurology Psychiatry
PROC: GZB4ZZZ Other Electroconvulsive Therapy (ICD-10-PCS; principal; 2020-02-23 08:30)
DX: F32.9 Major depressive disorder, single episode, unspecified (principal)
CPT/HCPCS: 90870; 94760

== ENCOUNTER 2020-03-15 06:26 | Day surgery (SDC) | payer OTHER ==
--- OUTSIDE RECORDS SUMMARY | 2020-01-22 11:45 | XMS ---
:1990 Author Organization [facility] Support Name Relationship Address Phone UE Unavailable Unavailable Unavailable ROBBIE PALACIOS MOTHER [address] [place] [address] [place] [address] Re-disclosure Warning The records that you are [...] is protected by Article 27-F of the [facility] Public Health law. If you continue you may haveaccess to information: Regarding HIV / AIDS; Provided by facilities licensed or operated by the [facility] Office of Mental Health; or Provided by the [facility] Office for People With Developmental Disabilities. If such information is present, then the following [facility] mandated warning applies: This information has [...] law may result in a fine or halfway sentence or both. A general authorization for the release of medical or other information is NOT sufficient authorization for further disclosure. Insurance Providers Payer name Policy type Policy ID Covered Covered republican's Policy P albert / Coverage republican ID relationship to [employer] Inf ormation type alford HEALTH [id number] SP [id number] FIRST Results ID Date Data Source [id number] 01/17/2020 02:30:00 PM EDT [facility] Name Value Range Interpretation Description Data Sup porting Code Source(s) Document(s ) SARS [facility] coronavirus 2 RNA This lab was ordered by DESIREE avila [facility] and reported by [facility]. Procedure
--- OUTSIDE RECORDS SUMMARY | 2020-03-15 06:28 | XMS ---
:1990 Author [facility] Support Name Relationship Address Phone UE, UNEMPLOYED Unavailable Unavailable Unavailable UE Unavailable Unavailable Unavailable ROBBIE PALACIOS MOTHER [address] [facility] [phone] [place] [phone] YULISA PALACIOS FATHER [address] [facility] [place] [phone] Re-disclosure Warning The records that you are [...] is protected by Article 27-F of the [facility] Public Health law. If you continue you may haveaccess to information: Regarding HIV / AIDS; Provided by facilities licensed or operated by the [facility] Office of Mental Health; or Provided by the [facility] Office for People With Developmental Disabilities. If such information is present, then the following [facility] mandated warning applies: This information has been [...] law may result in a fine or usp sentence or both. A general authorization for the release of medical or other information is NOT sufficient authorization for further disclosure. Insurance Providers Payer name Policy type Policy ID Covered Covered libertarian's Policy P albert / Coverage libertarian ID relationship to [employer] [facility] ormation type [facility] HEALTH [id number] SP [id number] FIRST Results ID Date Data Source [id number] 03/13/2020 01:55:00 AM EST [facility] Name Value Range Interpretation Description Data Sup porting Code Source(s) Document(s ) SARS-CoV-2 [facility] (COVID-19) RNA [Presence] in Respiratory specimen by VINEET with probe detection This lab [facility] and reported by [email or web address]. ID Date Data Source [id number] 03/04/2020 12:00:00 AM EDT [facility] Name Value Range Interpretation Description Data Sup porting Code Source(s) Document(s ) SARS [facility] coronavirus 2 RNA This lab was ordered by Emmett marin and reported by [facility]. ID Date Data Source [id number] 02/29/2020 04:04:00 PM EDT [facility] Name Value Range Interpretation Code Description Data Verena rce(s) Supporting Document(s ) SARS-COV-2 [facility] This lab was ordered by [facility] and reported by [employer]. ID Date Data Source [id number] 02/26/2020 12:00:00 AM EDT [facility] Name Value Range Interpretation Description Data Sup porting Code Source(s) Document(s ) SARS [facility] coronavirus 2 RNA This lab was ordered by Emmett marin and reported by [facility]. ID Date Data Source [id number] 02/19/2020 10:30:00 AM EDT [facility] Name Value Range Interpretation Description Data Sup porting Code Source(s) Document(s ) SARS [facility] coronavirus 2 RNA This lab was ordered by DESIREE MADRIGAL and reported by [facility]. ID Date Data Source [id number] 02/15/2020 11:06:00 AM EDT [facility] Name Value Range Interpretation Description Data Sup porting Code Source(s) Document(s ) SARS [facility] coronavirus 2 RNA This lab was ordered by DESIREE MADRIGAL and reported by [facility]. ID Date Data Source [id number] 02/12/2020 10:16:00 AM EDT [facility] Name Value Range Interpretation Description Data Sup porting Code Source(s) Document(s ) SARS [facility] coronavirus 2 RNA This lab was ordered by DESIREE avila [facility] and reported by [facility]. ID Date Data Source [id number] 02/09/2020 11:59:00 AM EDT [facility] Name Value Range Interpretation Description Data Sup porting Code Source(s) Document(s ) SARS [facility] coronavirus 2 RNA This lab was ordered by DESIREE JAKE avila [facility] and reported by [facility]. ID Date Data Source [id number] 02/04/2020 12:01:00 AM EDT [facility] Name Value Range Interpretation Description Data Sup porting Code Source(s) Document(s ) SARS-CoV-2 [facility] (COVID-19) RNA [Presence] in Respiratory specimen by VINEET with probe detection This lab was ordered by [facility] and reported by [email or web address]. ID Date Data Source [id number] 01/29/2020 10:30:00 AM EDT [facility] Name Value Range Interpretation Description Data Sup porting Code Source(s) Document(s ) SARS [facility] coronavirus 2 RNA This lab was ordered by DESIREE avila [facility] and reported by [facility]. ID Date Data Source [id number] 01/26/2020 07:42:00 AM EDT [facility] Name Value Range Interpretation Description Data Sup porting Code Source(s) Document(s ) SARS [facility] coronavirus 2 RNA This lab was ordered by [facility] and reported by [facility]. ID Date Data Source [id number] 01/22/2020 09:08:00 AM EDT [facility] Name Value Range Interpretation Description Data Sup porting Code Source(s) Document(s ) SARS [facility] coronavirus 2 RNA This lab was ordered by DESIREE JAKE avila [facility] and reported by [facility]. ID Date Data Source [id number] 01/17/2020 02:30:00 PM EDT [facility] Name Value Range Interpretation Description Data Sup porting Code Source(s) Document(s ) SARS [facility] coronavirus 2 RNA This lab was ordered by [facility] JAKE avila [facility] and reported by [facility]. Procedure
[2020-03-15 06:56] VITALS: BMI 21.2
[2020-03-15] MEDS ORDERED: PROPOFOL 20 ML ONE (07:51)
[2020-03-15] MEDS ORDERED: SUCCINYLCHOLINE CHLORIDE 200 MG/10 ML SYRINGE ONE (07:51)
[2020-03-15] MEDS ORDERED: KETAMINE HCL 500 MG/10 ML VIAL ONE (07:51)
[2020-03-15 08:46] VITALS: TEMP 98.4
[2020-03-15 09:00] VITALS: BP 126/71; PULSE 72
== END 2020-03-15 09:03 | disposition home or self-care (01) ==
LOC: FECT 06:26
PROVIDERS: ATTEND Psychiatry & Neurology Psychiatry
PROC: GZB4ZZZ Other Electroconvulsive Therapy (ICD-10-PCS; principal; 2020-03-15 07:30)
DX: F32.9 Major depressive disorder, single episode, unspecified (principal)
CPT/HCPCS: 90870; 94760

== ENCOUNTER 2020-03-22 07:03 | Day surgery (SDC) | payer OTHER ==
[2020-03-15 12:10] VITALS: BMI 21.2
[2020-03-22] MEDS ORDERED: KETAMINE HCL 500 MG/10 ML VIAL ONE (08:03)
[2020-03-22] MEDS ORDERED: DEXAMETHASONE SOD PHOSPHATE 4 MG/1 ML VIAL ONE (08:09)
[2020-03-22] MEDS ORDERED: SUCCINYLCHOLINE CHLORIDE 200 MG/10 ML SYRINGE ONE (08:27)
[2020-03-22 09:57] VITALS: TEMP 98.8
[2020-03-22 09:58] VITALS: BP 133/83; PULSE 86
== END 2020-03-22 09:45 | disposition home or self-care (01) ==
LOC: FECT 07:03
PROVIDERS: ATTEND Psychiatry & Neurology Psychiatry
PROC: GZB4ZZZ Other Electroconvulsive Therapy (ICD-10-PCS; principal; 2020-03-22 08:30)
DX: F32.9 Major depressive disorder, single episode, unspecified (principal)
CPT/HCPCS: 90870; 94760

== ENCOUNTER 2020-03-29 06:48 | Day surgery (SDC) | payer OTHER ==
[2020-03-29 07:36] VITALS: BMI 21.2
[2020-03-29] MEDS ORDERED: KETAMINE HCL 500 MG/10 ML VIAL ONE (08:18)
[2020-03-29 09:38] VITALS: TEMP 98.4
[2020-03-29 09:40] VITALS: BP 129/71; PULSE 91
== END 2020-03-29 09:45 | disposition home or self-care (01) ==
LOC: FECT 06:48
PROVIDERS: ATTEND Psychiatry & Neurology Psychiatry
PROC: GZB4ZZZ Other Electroconvulsive Therapy (ICD-10-PCS; principal; 2020-03-29 08:30)
DX: F32.9 Major depressive disorder, single episode, unspecified (principal)
CPT/HCPCS: 90870; 94760